=== PATIENT | male | born 2000 | race Caucasian/White ===

== ENCOUNTER 2025-03-13 08:19 | Day surgery (SDC) | payer OTHER ==
[~2025-03-13] VITALS: Ht 193 cm; Wt 87.5 kg
[~2025-03-13 08:19] MED LIST: ESOM40CA35 PO
[2025-03-13] MEDS ORDERED: LIDOCAINE VISCOUS 2% SOLN 15ML UDC As Ordered ONE (08:32)
[2025-03-13 09:02] VITALS: BP 130/76; TEMP 97.3; O2SAT 100
== END 2025-03-13 09:05 | disposition home or self-care (01) ==
LOC: M OPP 08:19
PROVIDERS: ATTEND Surgery
DX: K44.9 Diaphragmatic hernia without obstruction or gangrene (principal)

== ENCOUNTER 2025-07-09 06:21 | Emergency (ER) | payer OTHER ==
[~2025-07-09] VITALS: Ht 193 cm; Wt 90.9 kg
[2025-07-09] MEDS: NS (Normal Saline) 0.9% 1,000 ML IV ONE (07:38)
[2025-07-09] MEDS: KETOROLAC 30 MG/ML 1 ML VIAL IV ONE (07:38)
[2025-07-09 07:46] LABS: BASO # 0.1 10^3/uL (0.0-0.2); BASO % 0.7 % (0.0-1.0); EOS # 0.8 10^3/uL (0.0-0.5); EOS % 7.5 % (0.0-3.0); LYMPH # 2.0 10^3/uL (1.5-5.0); LYMPH % 18.1 % (24.0-44.0); MONO # 0.9 10^3/uL (0.0-0.8); MONO % 7.7 % (2.0-8.0); NEUTROPHILS # 7.3 10^3/uL (1.5-8.5); NEUTROPHILS % 65.5 % (36.0-66.0); PLATELET COUNT, AUTOMATED 211 10^3/uL (150-450)
[2025-07-09] MEDS ORDERED: ISOVUE-370 76% 100 ML VIAL As Ordered ONE (08:02)
[2025-07-09] MEDS ORDERED: HOME MED LIST COMPLETE! XX SCH (08:05)
[2025-07-09 08:09] LABS: ALT/SGPT 30 U/L (7.0-40); AST/SGOT 23 U/L (<34); CALCIUM LEVEL 10.1 MG/DL (8.5-10.1); CARBON DIOXIDE LEVEL 22 MMOL/L (20-31); CHLORIDE LEVEL 105 MMOL/L (98-107); CREATININE FOR GFR 0.97 MG/DL (0.70-1.30); GLOMERULAR FILTRATION RATE > 90.0 (>60); POTASSIUM SERUM 3.7 MMOL/L (3.5-5.1); SODIUM LEVEL 142 MMOL/L (136-145)
[2025-07-09] MEDS ORDERED: METR-265 PO (11:50)
[2025-07-09] MEDS ORDERED: CIPR-249 PO (11:50)
[2025-07-09 12:02] VITALS: BP 122/69; TEMP 97.9; O2SAT 99
== END 2025-07-09 12:03 | disposition home or self-care (01) ==
LOC: M ED 06:21
DX: K52.9 Noninfective gastroenteritis and colitis, unspecified (principal); Z79.2 Long term (current) use of antibiotics; Z79.899 Other long term (current) drug therapy
CPT/HCPCS: 74174; 80047; 80048; 80076; 83690; 85025; 96374; 99284; J1885; J2765; Q9967